=== PATIENT | female | born 1930 | race Caucasian/White ===

== ENCOUNTER → 2017-06-13 | Outpatient (CLI) | payer OTHER, MEDICARE | LOC: RAD 10:30 → EDBD 10:30 | DX: Z12.31 Encounter for screening mammogram for malignant neoplasm of breast (principal) ==

== ENCOUNTER → 2018-09-16 | Outpatient (CLI) | payer OTHER, MEDICARE | LOC: ULTRA 08:05 | DX: K76.0 Fatty (change of) liver, not elsewhere classified (principal); Z88.0 Allergy status to penicillin; Z88.8 Allergy status to other drugs, medicaments and biological substances ==

== ENCOUNTER 2019-02-22 10:17 | Emergency (ER) | payer OTHER, MEDICARE ==
[~2019-02-22] VITALS: Ht 165.1 cm; Wt 70.8 kg
[2019-02-22 10:21] VITALS: BP 143/77
[2019-02-22] MEDS ORDERED: LEVO-T100 MCG PO (11:15)
[2019-02-22] MEDS ORDERED: PREDNISONE 20 M20 MG PO (11:25)
== END 2019-02-22 11:45 | disposition home or self-care (01) ==
LOC: ER 10:17
DX: R21 Rash and other nonspecific skin eruption (principal); Z88.0 Allergy status to penicillin; Z88.6 Allergy status to analgesic agent

== ENCOUNTER 2019-11-18 10:13 | Inpatient (IN) | payer OTHER, MEDICARE ==
[~2019-11-18] VITALS: Ht 165.1 cm; Wt 75.5 kg
[~2019-11-18 10:13] MED LIST: LEVO-T100 MCG PO; PREDNISONE 20 M20 MG PO
[2019-11-18 10:14] VITALS: BP 101/44
[2019-11-18 11:59] LABS: ABSOLUTE NEUTROPHILS 4.3 thou/uL (1.4-8.2); BASOPHILS 0.4 % (0.0-2.0); HEMATOCRIT 42.7 % (37.0-47.0); HEMOGLOBIN 14.1 gm/dL (12.0-15.0); LYMPHOCYTES 18.4 % (24.0-44.0); MCH 29.9 pg (26.0-34.0); MCHC 33.2 g/dL (28.0-37.0); MCV 90.3 fL (80.0-100.0); MONOCYTES 6.6 % (1.0-8.0); PLATELET COUNT 245 thou/uL (150-400); POLYS 74.6 % (36.0-66.0); RBC 4.72 mil/uL (4.20-5.00); RDW 13.6 % (10.5-14.5); WBC 5.8 thou/uL (4.0-11.0)
[2019-11-18 12:08] LABS: ANION GAP 9 mmol/L (7-16); BUN 12 mg/dL (7-18); CALCIUM 8.2 mg/dL (8.5-10.1); CHLORIDE 97 mmol/L (98-107); CO2 24 mmol/L (21-32); CREATININE 1.4 mg/dL (0.6-1.0); GLUCOSE 132 mg/dL (74-106); POTASSIUM 4.1 mmol/L (3.5-5.1); SODIUM 130 mmol/L (136-145)
[2019-11-18 12:18] LABS: ALBUMIN 2.5 g/dL (3.4-5.0); DIRECT BILIRUBIN < 0.1 mg/dL (<0.1-0.2); SGOT 43 U/L (15-37); SGPT 31 U/L (30-65); TOTAL BILIRUBIN 0.3 mg/dL (0.2-1.0); TOTAL PROTEIN 7.1 g/dL (6.4-8.2); TROPONIN-I <0.06 ng/mL (<0.06)
[2019-11-18 12:26] LABS: URINE BILIRUBIN NEGATIVE (Negative); URINE BLOOD NEGATIVE (Negative); URINE CLARITY CLEAR; URINE COLOR YELLOW; URINE GLUCOSE-RANDOM* NEGATIVE (Negative); URINE KETONES TRACE (Negative); URINE LEUKOCYTES-REFLEX TRACE (Negative); URINE NITRITE-REFLEX NEGATIVE (Negative); URINE PROTEIN (DIPSTICK) TRACE (Negative); URINE UROBILINOGEN 0.2 E.U./dl (0.2-1.0)
[2019-11-18 15:07] VITALS: BP 138/60
--- NOTE | 2019-11-18 15:19 | EKG ---
[facility] [address] [place] [address] ELECTROCARDIOGRAM REPORT Name: JOSELYN RASMUSSEN Room #: 170-8 ADM [facility] M.R.#: [id number] Admission: 11/18/19 Attend Phys: Wiley Mckeon MD Discharge: Date of : 34 Report #: [id number] THIS REPORT FOR: cc: Wiley Mckeon MD, Neal A. 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
[2019-11-18 15:21] VITALS: BP 139/60
[2019-11-18 15:45] VITALS: BP 135/66
[2019-11-18 19:40] VITALS: BP 134/59
--- NOTE | 2019-11-18 19:53 | NUR ---
PT ARRIVED TO FLOOR PER WC FROM ED AT 1545 IN STABLE CONDITION.ADMISSION HX, ASSESSMENT AND CARE PLAN COMPLETED.DR ARIZA NOTIFIED ABOUT PT ARRIVAL TO FLOOR AND ORDER NOTED.PT UP TO BSC WITH ASSIST.CLEAR LIQ TRAY GIVEN AT DINNER. REPORT OFF TO NOC RN.
--- NOTE | 2019-11-19 06:20 | NUR ---
Assumed pt care at 1900. Pt A/OX4,VSS though with low grade temp/SOA contacted and orders obtained for APAP/CXR/Blood cx. Xray results called to MD and N.O for Levaquin given and implemented. Pt's IV infiltrated twice and a 24 gauge started on LFA,IVF infusing w/o problems at this time. Pt c/o not being able to sleep well despite sleep aid being given stating she wants to go home today regardless of dtr/MD decision stating she shouldn't have been admitted she's fine 1:1 reassuarance given to pt with little success. Reports feeling hungry this am,on a clear liquid diet will relay to day nurse for advancing diet. No c/o N/V throughout the night. Up with AX1 to BSC. Fall precautions in place,calls approp for help,will continue to monitor pt.
[2019-11-19 06:21] VITALS: BP 125/47
[2019-11-19 09:37] LABS: HEMATOCRIT 41.5 % (37.0-47.0); HEMOGLOBIN 13.5 gm/dL (12.0-15.0); MCH 29.3 pg (26.0-34.0); MCHC 32.5 g/dL (28.0-37.0); MCV 90.4 fL (80.0-100.0); RBC 4.59 mil/uL (4.20-5.00); RDW 13.4 % (10.5-14.5)
[2019-11-19 09:43] LABS: POTASSIUM 4.1 mmol/L (3.5-5.1)
[2019-11-19 10:25] VITALS: BP 154/75
--- NOTE | 2019-11-19 11:07 | NUR ---
Assumed pt care at 7am.Assessment completed.vss.Pt was very anxious and hungry wanted breakfast.Dr Mckeon rounded on pt and order noted.Covid 19 test done.Lab called and was told that the result will be out by 1500.Due to covid r/o protocol,pt transfered to 3west per bed at am accompanied by this rn.Dr Mckeon and pt family notified.
--- NOTE | 2019-11-19 11:19 | NUR ---
ASSUMED PATIENT CARE THIS AM AT APPROXIMATELY 1000. PATIENT ARRIVED TO UNIT FROM 4W FOR R/O COVID. PATIENT EDUCATED ON ISOLATION PRECAUTIONS AND INDICATION FOR MOVING ROOMS. ALL SAFETY PRECAUTIONS IN PLACE. CALL LIGHT WITHIN REACH EDUCATED PATIENT ON USE OF CALL LIGHT FOR ASSISTANCE OUT OF BED. NO ACUTE DISTRESS NOTED. ASSESSMENT AND MEDS CHARTED.
[2019-11-19 15:10] VITALS: BP 147/76
[2019-11-19 20:01] VITALS: BP 127/68
[2019-11-20 02:34] LABS: BE(vivo) -0.2 mmol/L (-2 to +3); HCO3 20.7 mmol/L (22.0-26.0); PCO2 25.1 mmHg (35.0-45.0); PO2 98.2 mmHg (80.0-100.0); pH 7.534 (7.360-7.450); sO2 98.2 % (92.0-98.0)
[2019-11-20 02:56] VITALS: BP 155/80
--- NOTE | 2019-11-20 04:45 | NUR ---
0230 PT CALLED OUT TO USE BSC. PT WAS LOOKING DISTRESSED AND HAVING HARD TIME BREATHING. PLACED 02 SENSOR AND PT WAS IN LOW 80'S. ORDERED ABG'S. GRABBED NC AND PLACED PT ON 4L. 02 UP TO 86-88%. PLACED PT ON REBREATHER TO INCREASE 02 SATURATION. PT 02 ON REBREATHER WAS 98%. ALSO PLACED PT ON TELE TO SEE IF ANY UNDERLYING HEART RHYTHMS. TELE SHOWED ST. CALLED AND GAVE UPDATE ON PT ABG'S, 02 NEEDS AND ANXIETY. RECEIVED ORDERS AND TO VERIFY LABS AND CHEST XRAY FOR AM. PT GIVEN 0.5MG XANAX TO HELP WITH ANXIETY. PT TOLERATED XANAX WELL AND SLEEPING. 02 TITRATED TO 2L NC AND AT 98% AT 0430. 2ND COVID SWAB CAME BACK POSITIVE. CALLED HS WITH RESULT AND PLACED CONSULT FOR ID.
[2019-11-20 05:29] LABS: CALCIUM 8.1 mg/dL (8.5-10.1); CREATININE 1.1 mg/dL (0.6-1.0); POTASSIUM 4.3 mmol/L (3.5-5.1)
[2019-11-20 05:36] LABS: HEMATOCRIT 40.1 % (37.0-47.0); HEMOGLOBIN 13.4 gm/dL (12.0-15.0); MCH 29.9 pg (26.0-34.0); MCHC 33.4 g/dL (28.0-37.0); MCV 89.6 fL (80.0-100.0); RBC 4.48 mil/uL (4.20-5.00); RDW 13.6 % (10.5-14.5); WBC 5.7 thou/uL (4.0-11.0)
[2019-11-20 07:50] VITALS: BP 151/74
[2019-11-20 08:20] VITALS: BP 141/77; BP 151/74
--- NOTE | 2019-11-20 13:31 | NUR ---
PT CARE ASSUME AT 0700, PT ALERT AND ORIENTED X4, FORGETFUL ATIMES. PT IS ON 2L OF OXYGEN. SEEMS TO HAVE OW APPETITE, ENCOURAGE TO EAT BUT REFUSES TO EAT. PT IS UP WITH 1 ASSIST TO THE BEDSIDE COMMODE. FALL PRECAUTION IN PLACE. WILL CONTINUE TO MONITOR.
--- NOTE | 2019-11-20 13:34 | NUR ---
INITIAL ASSESSMENT: Received consult. SW reviewed chart and spoke with nursing and attending physician. Pt was admitted from home due to weakness/dehydration. Pt transferred to 3W from 4W yesterday morning and placed in Enhanced Isolation. Pt did have positive COVID test. Pt is on 2L of O2 and on IV abx/IV steroids. Pt did require 15L with NRB mask overnight. Pt is a DNR. PT/OT ordered to evaluate pt for discharge needs. ID consulted. No weekend discharge planned. CINDY placed call to pt's room. No answer. CINDY spoke with pt's dtr, Mayela, via phone. Introduced role of SW. Pt is normally alert/orientated x 4. Pt lives at home with Mayela and her . 5 steps to enter the home. 10 steps up to the second level where pt's bedroom is located. Pt does not use any DME and is able to navigate the stairs. No use of O2 prior to admission. Pt's PCP is Dr. Mckeon. No hx of HH services or post-acute placement. Pt's dtr is concerned about pt returning home and need to isolate in the home. CINDY discussed options for discharge: SNF placement v. Home with HH. Pt's dtr states HH would be preferred. SW answered all questions from pt's dtr. SW is following to assist as needed with discharge planning.
[2019-11-20 16:36] VITALS: BP 130/65
[2019-11-20 19:24] VITALS: BP 128/65
[2019-11-20] MEDS ORDERED: LUMIFY2.5 ML OPHTHALMIC (20:20)
[2019-11-21 01:41] VITALS: BP 131/79; BP 134/77
--- NOTE | 2019-11-21 02:17 | NUR ---
1 st dose of Remdesivir given and convelscent plasma started at 0155. spoke to pts dtr for consent to administer te plasma. also talked with pt/ educated on the need and documents information provided. she has poor vision, helped her read through the education.
[2019-11-21 04:49] VITALS: BP 131/79
[2019-11-21 05:17] LABS: HEMATOCRIT 38.8 % (37.0-47.0); HEMOGLOBIN 12.6 gm/dL (12.0-15.0); MCH 29.4 pg (26.0-34.0); MCHC 32.4 g/dL (28.0-37.0); MCV 90.5 fL (80.0-100.0); PLATELET COUNT 207 thou/uL (150-400); RBC 4.29 mil/uL (4.20-5.00); RDW 13.6 % (10.5-14.5); WBC 2.5 thou/uL (4.0-11.0)
[2019-11-21 05:28] LABS: ALBUMIN 2.1 g/dL (3.4-5.0); CREATININE 0.9 mg/dL (0.6-1.0); POTASSIUM 3.8 mmol/L (3.5-5.1); TOTAL BILIRUBIN 0.2 mg/dL (0.2-1.0); TOTAL PROTEIN 6.5 g/dL (6.4-8.2)
[2019-11-21 06:51] LABS: ABSOLUTE NEUTROPHILS 1.6 thou/uL (1.4-8.2)
[2019-11-21 06:55] LABS: FIBRINOGEN 433.1 mg/dL (210-360); PROTIME 10.2 Seconds (9.3-11.4)
[2019-11-21 07:33] VITALS: BP 146/78
--- NOTE | 2019-11-21 11:47 | NUR ---
ASSUMED PATIENT CARE THIS AM AT APPROXIMATELY 0700. PATIENT AWAKE ALERT ORIENTED X3. INTERMITTENT CONFUSION ON DATE/TIME. PATIENT O2 SAT AT 90% ON 4LNC, INCREASED O2 TO 5LNC AND O2 SAT INCREASED TO 92%. WILL CTM. PATIENT DENIES ANY SOB AT THIS TIME. NO COMPLAINTS OF PAIN. STATES THAT SHE WOULD LIKE TO AMBULATE IN ROOM BY HERSELF BUT EDUCATED ON FALL PRECAUTIONS WITH MX LINES. ENCOURAGED OOB TO CHAIR WITH ASSISTANCE ONLY.
[2019-11-21 15:20] VITALS: BP 139/70
[2019-11-21 19:17] VITALS: BP 146/69
[2019-11-22 03:25] VITALS: BP 145/81
[2019-11-22 03:45] VITALS: BP 145/81
--- NOTE | 2019-11-22 05:44 | NUR ---
CONTINUES ON THE REMDESIVIR, SHE STATD THAT SHE IS FEELING BETTER AND LESS WEAK. CONTINUES ON IV FLUIDS. CALLS APPROP FOR ASSIST OUT FOR BSC. REPEATEDLY ASKING WHEN SHE WILL GET TO GO HOME. FORGETFUL ABOUT ANSWER GIVEN.
[2019-11-22 08:26] VITALS: BP 142/77
--- NOTE | 2019-11-22 11:50 | NUR ---
ASSUMED PATIENT CARE THIS AM AT APPROXIMATELY 0700. PATIENT AWAKE ALERT ORIENTED X3. DISORIENTED TO TIME. PATIENT FORGETFUL AND REPEATS SAME QUESTIONS. REORIENTED PATIEN PRN THROUGHOUT SHIFT. ASSISTED PATIENT TO BSC AND BEDSIDE CHAIR WITH 1 PERSON ASSIST, TOLERATED WELL DENIES ANY DIZZINESS/ SOB WITH TRANSFERS. ENCOUARAGED PATIEN TO STAY IN CHAIR FOR MAJORITY OF THE DAY. PATIENT O2 SAT AT 90% ON 4LNC. TOLERATING MEDICATIONS WELL. BED ALARM AND CHAIR ALARM IN PLACE. EDUCATED PATIENT ON FALL PRECAUTIONS.
[2019-11-22 15:20] VITALS: BP 153/81
[2019-11-22 19:35] VITALS: BP 159/84
[2019-11-23 02:43] VITALS: BP 140/91
--- NOTE | 2019-11-23 04:00 | NUR ---
Pt. on 5L/NC at beginning of shift with O2 sat in the low 90's.Assisted to use commode the desat in the mid 80's. O2 titrated up to 7L/HF to keep O2 sat >90%. She does get short of breath with exertion. RT notified and gave her scheduled breathing tx. RT titrated O2 back down to 6L after tx. She requested for anxiety med and xanax given. She slept fair during the night. Cont. on enhanced precaution ,afebrile. Bed alarm on for safety.
[2019-11-23 05:10] LABS: CALCIUM 7.4 mg/dL (8.5-10.1); CREATININE 0.9 mg/dL (0.6-1.0); POTASSIUM 3.3 mmol/L (3.5-5.1)
[2019-11-23 05:17] LABS: ALBUMIN 1.9 g/dL (3.4-5.0); DIRECT BILIRUBIN < 0.1 mg/dL (<0.1-0.2); SGOT 47 U/L (15-37); SGPT 41 U/L (30-65); TOTAL BILIRUBIN 0.2 mg/dL (0.2-1.0); TOTAL PROTEIN 6.1 g/dL (6.4-8.2)
[2019-11-23 07:15] LABS: HEMATOCRIT 40.8 % (37.0-47.0); HEMOGLOBIN 13.4 gm/dL (12.0-15.0); MCH 29.5 pg (26.0-34.0); MCHC 32.9 g/dL (28.0-37.0); MCV 89.6 fL (80.0-100.0); RBC 4.55 mil/uL (4.20-5.00); RDW 13.9 % (10.5-14.5); WBC 10.1 thou/uL (4.0-11.0)
[2019-11-23 07:26] VITALS: BP 153/94
[2019-11-23 10:09] LABS: BE(vivo) 1.8 mmol/L (-2 to +3); HCO3 24.5 mmol/L (22.0-26.0); pH 7.488 (7.360-7.450); sO2 90.9 % (92.0-98.0)
[2019-11-23 10:10] LABS: PO2 54.4 mmHg (80.0-100.0)
--- NOTE | 2019-11-23 10:33 | NUR ---
ASSUMED PATIENT CARE THIS AM. PATIENT IS AWAKE AND ALERT, CONFUSED AND FORGETFUL. PATIENT VERY ANXIOUS THIS AM, REPEATEDLY ASKING TO GET OUT OF BED TO BSC, O2 SAT DROPPED TO 80% ON 7LNC THIS AM WHEN GETTING UP TO BSC, IT TOOK ABOUT 5 MINUTES FOR PATIENT O2 TO RECOVER TO 88%. PATIENT O2 INCREASED TO HIGHFLOR NC AT 9L. O2 SAT 91%. ENCOURAGED PATIENT TO USE BEDSIDE COMMODE AND O2 SAT DROPPED WHEN USING BEDSIDE COMMODE WELL TO 80%, PLACED PATIENT ON NRB AT 15L AND ORDERS OBTAINED FROM DR. ARIZA FOR TINSLEY PLACEMENT, CHEST XRAY, LASIX IV, ABG. O2 SAT INCREASED TO 95% ON 15LNRB. RESTING IN BED. CALLED PATIENT DAUGHTER TO MAKE AWARE OF CHANGE IN PATIENT STATUS AND WHEN PATIENT WAS SETTLED PATIENT WAS ABLE TO SPEAK WITH DAUGHTER VIA FACETIME VIDEO CHAT. ALL SAFETY MEASURES IN PLACE. CALLED DR ARIZA TO MAKE AWARE OF CHEST XRAY AND ABG RESULTS. AWAITING NEW ORDERS
--- NOTE | 2019-11-23 15:55 | NUR ---
CINDY reviewed chart and spoke with nursing. Pt remains in Enhanced Isolation due to COVID-19. Pt had convalescent plasma and is completing course of Remdesivir. Pt is afebrile and now requiring 15L of O2. Pt is on IV lasix and IV steroids. CINDY spoke with pt's dtr, Mayela, via phone. Mayela asked about pt being put on hospice in the hospital, should her condition continue to decline. Pt's dtr to coordinate with pt's nurse another Face Time visit, as visitors are not allowed on 3W. CINDY updated pt's nurse. CINDY is following to assist as needed with discharge planning.
[2019-11-23 16:00] VITALS: BP 137/79
[2019-11-23 20:39] VITALS: BP 142/84
[2019-11-24 03:44] VITALS: BP 159/98
--- NOTE | 2019-11-24 05:08 | NUR ---
PT WAS VERY ANXIOUS AT BEGINNING OF SHIFT, CALLING OUT FREQUENTLY AND MAKING CONFUSED STATEMENTS, SAYING SHE WANTS TO GO HOME. PT'S DTR MEAGAN CALLED UNIT; UPDATE PROVIDED. PT BECOMES SOA WITH ANY EXERTION AND O2 SATS DROP INTO THE 80S. RT PLACED PT ON OPTIFLOW 50L, 75% FIO2. PT WAS GIVEN BENADRYL AND TYLENOL AT BEDTIME TO HELP WITH SLEEP AND DISCOMFORT. PT HAS SINCE BEEN SLEEPING WELL DURING THE NIGHT. RESPIRATIONS EVEN AND UNLABORED. PT HAS MAINTAINED SPO2 > 92% WHILE ON OPTIFLOW. FALL PRECAUTIONS IN PLACE. NOT PROGRESSING WELL TOWARD POC GOALS.
[2019-11-24 05:23] LABS: FIBRINOGEN 388.3 mg/dL (210-360); INR 1.1; PROTIME 11.5 Seconds (9.3-11.4)
[2019-11-24 05:34] LABS: DIRECT BILIRUBIN < 0.1 mg/dL (<0.1-0.2); SGOT 54 U/L (15-37); SGPT 57 U/L (30-65); TOTAL BILIRUBIN 0.3 mg/dL (0.2-1.0); TOTAL PROTEIN 5.9 g/dL (6.4-8.2)
[2019-11-24 05:44] LABS: CALCIUM 7.5 mg/dL (8.5-10.1); POTASSIUM 3.9 mmol/L (3.5-5.1); TOTAL BILIRUBIN 0.3 mg/dL (0.2-1.0); TOTAL PROTEIN 5.9 g/dL (6.4-8.2)
[2019-11-24 05:55] LABS: HEMATOCRIT 40.2 % (37.0-47.0); HEMOGLOBIN 13.3 gm/dL (12.0-15.0); MCH 29.5 pg (26.0-34.0); MCHC 33.2 g/dL (28.0-37.0); MCV 88.9 fL (80.0-100.0); PLATELET COUNT 309 thou/uL (150-400); RBC 4.52 mil/uL (4.20-5.00); RDW 13.5 % (10.5-14.5); WBC 7.5 thou/uL (4.0-11.0)
[2019-11-24 08:33] LABS: ABSOLUTE NEUTROPHILS 6.2 thou/uL (1.4-8.2); ANISOCYTOSIS SLIGHT; ATYPICAL LYMPHS 1 %; LARGE PLATELETS FEW
[2019-11-24 09:35] VITALS: BP 163/100
--- NOTE | 2019-11-24 15:53 | NUR ---
CINDY reviewed chart and spoke with nursing and attending physician. Pt remains in Enhanced Isolation due to COVID-19. Pt is febrile and requiring optiflow O2. Pt is on IV abx and IV steroids. Pt to complete course of Remdesivir today. Per attending, pt's family would like to continue course of treatment for the next couple of days to see if pt's condition improves. If not, pt would be agreeable with comfort care/hospice. Pt's family has been able to see/communicate with pt via Face Time. CINDY is following to assist as needed with discharge planning.
[2019-11-24 16:56] VITALS: BP 136/76
--- NOTE | 2019-11-24 18:00 | NUR ---
PT VERY ANXIOUS...RESPONDS WELL TO ATIVAN PRN,...SHE DID FACETIME HER DAUGHTER TODAY WHICH DID CALM HER DOWN...
[2019-11-24 19:45] VITALS: BP 153/88
[2019-11-25 06:42] LABS: CALCIUM 7.6 mg/dL (8.5-10.1); CREATININE 1.1 mg/dL (0.6-1.0); POTASSIUM 4.3 mmol/L (3.5-5.1)
--- NOTE | 2019-11-25 07:14 | NUR ---
ASSUMED PT CARE AROUND 193. VSS. REMAINS TO BE ON HFC.MAINTAINED BY RT MOST OF THE TIMES AN ON CONT PULSE OX MONITORING. NO S/S ACUTE DISTRESS NOTED OR REPORTED AT THIS TIME. CARE TRANSFERRED TO ANOTHER RN AT THIS TIME
[2019-11-25 08:12] VITALS: BP 171/81
--- NOTE | 2019-11-25 15:49 | NUR ---
SW reviewed chart and spoke with nursing and attending physician. Pt remains in Enhanced Isolation due to COVID-19. Pt is afebrile and and requiring Optiflow. Pt is on IV Lasix, IV steroids and IV abx. Pt has completed course of Remdesivir. Physical therapy was able to work with therapy yesterday. CINDY is following to assist as needed with discharge planning.
[2019-11-25 16:30] VITALS: BP 135/80
--- NOTE | 2019-11-25 18:00 | NUR ---
PT KEEPS REQUESTING TO GO HOME...VEWRY CONCERNED ABOUT SEEING HER FAMILY...SHE FACETIMED FAMILY X 3 TODAY...
[2019-11-25 20:03] VITALS: BP 157/88
[2019-11-26 05:26] VITALS: BP 169/95
--- NOTE | 2019-11-26 07:26 | NUR ---
progress pt alert denies pain except for throat pain ice chips provided and tylenol given with effect pt slept most of shift up to bsc for small stool. monroy intact draining clear yellow urine remians on optiflo at 53 liters and a fio2 of 79 cont, sat monitor in place reading remaining within normal limits 91 to 95%. accuchecks and ssi continue. iv abt's administered as ordered continue poc.
[2019-11-26 08:12] VITALS: BP 156/89
[2019-11-26 15:04] LABS: HEMOGLOBIN 14.6 gm/dL (12.0-15.0); MCH 29.6 pg (26.0-34.0); MCHC 33.1 g/dL (28.0-37.0); MCV 89.5 fL (80.0-100.0); RBC 4.91 mil/uL (4.20-5.00); RDW 13.9 % (10.5-14.5)
[2019-11-26 15:26] LABS: CALCIUM 7.8 mg/dL (8.5-10.1); CREATININE 1.3 mg/dL (0.6-1.0); POTASSIUM 5.1 mmol/L (3.5-5.1)
[2019-11-26 15:41] VITALS: BP 118/64
--- NOTE | 2019-11-26 18:12 | NUR ---
ASSUMED PATIENT CARE THIS AM AT APPROXIMATELY 0700. PATIENT IS AWAKE ALERT ORIENTED X3. PATIENT O2 SAT 94-96% ON OPTIFLOW 53L AT 79% FIO2. RT TITRATING O2 NEEDS THIS SHIFT, ABLE TO TITRATE PATIENT DOWN TO 45L AT 45% FIO2 THIS SHIFT. O2 SAT 91-93% AT REST. PATIENT WAS ABLE TO GO TO BEDSIDE CHAIR X 2HRS THIS SHIFT WITH OT. O2 SAT DID DROP TO 86% WITH OOB ACTIVITY. TOLERATING PO MEDS, POOR APPETITE THIS SHIFT ONLY DRINKING ENSURES FOR MEALS, REFUSING SOLID FOOD.
[2019-11-26 19:25] VITALS: BP 148/79
--- NOTE | 2019-11-27 00:53 | NUR ---
PATIENT SLEEPING IN BED AWAKEN FOR ASSESSMENT. IS ALERT X 2-3. SKIN WARM AND DRY. RESP EVEN ANDF UNLABORED. 02 IS N45 L WITH 45 FI02. O2 SAT 96%. HAS A RIGHT HAND SL FLUSHES WELL WITH ALL ANTIBIOTICS. HAS A POOR VISON. HAS A POOR APPETITE AT TIMES. TINSLEY INTACT. UP TO BSC WITH NO BM NOTED. NO SKIN ISSUES NOTED. TAKES MEDS WHOLE WITH WATER. IS A 1 PERSON MOD ASSIST. FALL RISK. HAS EDEMAA NOTED TO ANKLES ABOUT 1+. LUNGS HAVE CRACKLES NOTED IN RIGHT SIDE.,MHAS REDDNESS ON HIS SHINS BILATERAL. GIVEN ATIVAN FOR ANXIETY. SLEEPING WELL NOW. CONT PLAN OF CARE.
[2019-11-27 05:14] VITALS: BP 149/81
[2019-11-27 10:08] LABS: HEMATOCRIT 44.5 % (37.0-47.0); HEMOGLOBIN 14.6 gm/dL (12.0-15.0); MCH 29.4 pg (26.0-34.0); MCHC 32.9 g/dL (28.0-37.0); MCV 89.4 fL (80.0-100.0); RBC 4.98 mil/uL (4.20-5.00); RDW 13.9 % (10.5-14.5); WBC 13.6 thou/uL (4.0-11.0)
[2019-11-27 10:18] LABS: CALCIUM 8.4 mg/dL (8.5-10.1); CREATININE 0.8 mg/dL (0.6-1.0); POTASSIUM 5.1 mmol/L (3.5-5.1)
[2019-11-27 11:51] LABS: TOTAL BILIRUBIN 0.5 mg/dL (0.2-1.0); TOTAL PROTEIN 5.8 g/dL (6.4-8.2)
[2019-11-27 16:33] VITALS: BP 141/72
--- NOTE | 2019-11-27 16:43 | NUR ---
CINDY reviewed chart and spoke with nursing and attending physician. Pt remains in Enhanced Isolation due to COVID-19. Pt is afebrile and on optiflow. Pt is on IV abx and IV steroids. No weekend discharge planned. CINDY spoke with pt's dtr and son-in-law via phone. Update provided and questions answered. CINDY discussed post-acute placement: LTAC/inpt acute rehab/SNF. Pt's family verbalized understanding and know that pt most likely cannot return directly home when discharged. CINDY is following to assist as needed with discharge planning.
--- NOTE | 2019-11-27 18:20 | NUR ---
CONT ON HIGH GURWINDER OXYGEN AT THIS TIME. RESPIRATIONS ARE NON LABORED. PLEASANT WITH CARE. DOES NOT SEEM TO BE IN PAIN. HAD MULTIPLE SMALL STOOLS THROUGH THE DAY. SPOKE WITH FAMILY VIA VIDEO. WILL CONT WITH PLAN OF CARE.
[2019-11-27 19:33] VITALS: BP 144/78
--- NOTE | 2019-11-27 22:26 | NUR ---
PT HAS SCOWL ON FACE EYES CLOSED TALKING ON PHONE WITH STATING SHE WANTS TO GO HOME TOMORROW, PT ALSO REQUESTING COMMUNION. NURSE TALKED WITH ON PHONE, AND HE STATED PT IS NORMALLY VERY POSITIVE AND HAPPY. PT CONTINUES WITH OPTI GURWINDER AND CONTINUOUS PULSE OX. , LUNGS COARSE IN THE BASES. TINSLEY TO DD. IVF CONTINUE. PT COMPLIANT WITH HS MEDS. BED ALARM ON. PT REPORTED TO HAVE POOR PO INTAKE TODAY, DECLINED HS SNACK.
[2019-11-28 03:47] VITALS: BP 152/86
[2019-11-28 07:40] VITALS: BP 169/93
[2019-11-28 15:32] VITALS: BP 125/67
--- NOTE | 2019-11-28 18:33 | NUR ---
PATIENT HAS BEEN UP FROM BED FEW TIMES TODAY TO USE BEDSIDE COMMODE. HAS HAD ONE BOWEL MOVEMENT SO FAR. TINSLEY DRAINING CLEAR YELLOW URINE. WILL CONT WITH PLAN OF CARE.
[2019-11-28 19:42] VITALS: BP 155/86
[2019-11-28 23:53] VITALS: BP 155/95
--- NOTE | 2019-11-29 01:46 | NUR ---
PT IS CONFUSED AND FORGETFUL. VSS AFEBRILE. SATS 94-95% WITH CURRENT OPTIFLOW SETTINGS. PT C/O "I CANT BREATHE." RT TX GIVEN EARLIER. ATIVAN GIVEN FOR ANXIETY. PT BREATHING BETTER NOW. RESTING QUIETLY. SATS 95%. IV IBX INFUSING. BED DOWN. CALL LIGHT IN REACH SIDE RAILS UP X2. BED ALARM ON. JOSE C CONTINUE TO MONITOR PT FOR CHANGES.
[2019-11-29 04:15] VITALS: BP 171/96
[2019-11-29 08:58] VITALS: BP 138/93
--- NOTE | 2019-11-29 12:05 | NUR ---
ASSUMED PATIENT CARE THIS AM AT APPROXIMATELY 0700. PATIENT IS AWAKE ALERT AND ORIENTED TO SELF PLACE AND SITUATION. WITH SOME INTERMITTENT FORGETFULNESS AND CONFUSION. PATIENT VERY ANXIOUS THIS AM AND ATTEMPTING TO GET OUT OF BED FREQUENTLY WITHOUT CALLING FOR ASSISTANCE. ASSISTED PATIENT TO BEDSIDE CHAIR FOR BREAKFAST AND LUNCH AND IMMEDIATELY CALLED TO BE ASSISTED BACK TO BED. PATIENT GIVEN ATIVAN X1 THIS AM FOR ANXIETY. WILL CTM FOR EFFECTIVENESS. ALL SAFETY MEASURES IN PLACE.O2 SAT 90-92% ON OPTIFLOW NC.
[2019-11-29 17:45] VITALS: BP 133/66
[2019-11-29 19:19] VITALS: BP 151/81
--- NOTE | 2019-11-30 02:25 | NUR ---
PT IS ALERT AND ORIENTED X1. CONFUSED. THOUGHT SHE WAS AT [facility] IN HER NEW ROOM. PT IS DISORIENTED AT TIMES TO DAY AND NIGHT. BED ALARM ON SIDE RAILS UP X3. BED DOWN IN LOW LOCKED POSITION. VSS AFEBRILE. DESATS WHILE GETTING UP TO BSC BRIEFLY THEN BACK UP 93%. ABX GIVEN ORDERED. WILL CONTINUE TO MONITOR PT FOR CHANGES. PT VOIDS CLEAR YELLOW URINE IN BSC, PT HAD 1 LOOSE STOOL.
[2019-11-30 03:23] VITALS: BP 184/83
[2019-11-30 06:14] LABS: CALCIUM 8.2 mg/dL (8.5-10.1); CREATININE 0.9 mg/dL (0.6-1.0); POTASSIUM 4.9 mmol/L (3.5-5.1)
[2019-11-30 06:15] LABS: HEMATOCRIT 44.7 % (37.0-47.0); HEMOGLOBIN 14.7 gm/dL (12.0-15.0); MCH 29.7 pg (26.0-34.0); MCHC 32.9 g/dL (28.0-37.0); MCV 90.2 fL (80.0-100.0); RBC 4.95 mil/uL (4.20-5.00); RDW 13.9 % (10.5-14.5); WBC 12.8 thou/uL (4.0-11.0)
--- NOTE | 2019-11-30 06:25 | NUR ---
PT RESTING QUIETLY PRESENTLY. IV ABX INFUSING. UNLABORED PRESENTLY ON OPTIFLOW. NO CHANGES IN ASSESSMENT.
[2019-11-30 06:47] VITALS: BP 157/63
--- NOTE | 2019-11-30 07:12 | NUR ---
CORRECTION FROM PREVIOUS NURSING NOTE ENTRY. PTS BP HAS BEEN MODERATELY ELEVATED FROM 150s to as high as 180s. Dr Mckeon was notified and he stated he would add or adjust bp medications.
[2019-11-30 07:40] VITALS: BP 156/83
[2019-11-30 07:54] VITALS: BP 156/83
--- NOTE | 2019-11-30 08:00 | NUR ---
PT IS ABLE TO STATE HER NAME, WHAT STATE SHE IS IN, HER BIRTHDAY AND THE MONTH. UNABLE TO STATE WHAT KIND OF BUILDING SHE IS IN, BUT KNOWS THAT SHE WANTS TO GET OUT AND SHE WANTS TO GO BACK TO [place] WERE IT IS WARM. CALLED THE PT WHEN I WAS IN THE ROOM. PT KEPT TELLING HIM THAT SHE WANTS TO GO WITH HIM AND GO BACK TO [place]. I TALKED WITH ON THE PHONE. HE STATES THAT LIFE WAS DIFFERENT WHEN THEY LIVED IN [place] AND PT ISN'T USED TO BEING ISOLATED. STATED MY APOLOGIES ABOUT ISOLATION GUIDELINES AND UPDATED HIM ON PTS CARE
--- NOTE | 2019-11-30 11:45 | NUR ---
IPAD TAKEN IN ROOM AND PT FACETIMED WITH HER DAUGHTER AND FAMILY.
--- NOTE | 2019-11-30 16:15 | NUR ---
CINDY reviewed chart and spoke with nursing and attending physician. Pt remains in Enhanced Isolation due to COVID-19. Pt is afebrile and on optiflow (40L 33% FiO2). Pt is s/p convalescent plasma and course of Remdesivir. Pt is on IV abx and IV steroids. Repeat COVID test to be ordered. CINDY spoke with pt's dtr, Mayela, via phone to discuss LTAC placement. Lengthy discussion regarding the three LTAC facilities. Pt's dtr requests referral to be sent to all three for review. Pt would prefer a private room. SW faxed referrals with Rev Codes to the three LTACS for review. Notified liaisons. CINDY is following to assist as needed with discharge planning.
[2019-11-30 16:48] VITALS: BP 152/78
--- NOTE | 2019-11-30 18:37 | NUR ---
PT PROGRESSED WELL THROUGHOUT THE SHIFT. PT STARTED ON VAPOTHERM AT 45L 33%. PT IS NOW ON HIGH FLOW NASAL CANNULA @ 10L. TOLERATING WELL. PT PARTICIPATED WITH PT/OT TODAY. DID NOT DESATURATE WITH ACTIVITY. GOOD PO INTAKE AND OUTPUT.
[2019-11-30 19:10] VITALS: BP 145/58
--- NOTE | 2019-12-01 02:45 | NUR ---
PT PROGRESSING TOWARDS D/C GOALS. TOLERATED GETIING TO BSC WELL ON 10 L NC. NEW IV PLACED L HAND FOR ABX. LUNGS DIMINSHED. LABORED SLIGHTLY WHILE GETTING TO BSC. NO C/O PAIN. PT ANXIOUS TO GO TO BACK TO [place]. WILL CONTINUE TO MONITOR PT FOR CHANGES.
[2019-12-01 03:31] VITALS: BP 174/91
--- NOTE | 2019-12-01 06:31 | NUR ---
PT RESTING QUIETLY NO S/S DISTRESS. NO C/O PAIN. SAT 96% ON 10 LNC
[2019-12-01 07:45] VITALS: BP 150/77
[2019-12-01 15:25] VITALS: BP 111/59
--- NOTE | 2019-12-01 16:06 | NUR ---
CINDY reviewed chart and spoke with nursing and attending physician. Pt remains in Enhanced Isolation due to COVID-19. Pt had repeat test yesterday and it was negative. Pt is afebrile and on 8L of O2. Pt is on IV abx and IV steroids. Attending states discharge to SNF is anticipated for tomorrow to [facility]. CINDY spoke with pt's dtr, Mayela, via phone to provide update and discuss discharge plan. CINDY discussed that the LTACs have pt's info. Pt's dtr states that Dr. Mckeon discussed [facility], and she is agreeable with referral to [facility]. CINDY faxed SNF referral to [facility] and notified liaison. [facility] requests a second negative COVID test if possible. [facility] can provide up to 7L of O2. CINDY updated attending physician. CINDY is following to assist as needed with discharge planning.
--- NOTE | 2019-12-01 18:24 | NUR ---
ASSUMED CARE APPROX 0700. PT ALERT AND ORIENTED X3. ASSESSMENT CHARTED AND VSS. REMAINS ON HFNC @8L AND DESATS WHEN AMBULATING. PT'S DTR AND SON UPDATED ON STATUS THIS SHIFT. PT DENIES PAIN. PT SLOWLY PROGRESSING TOWARDS PLAN OF CARE GOALS.
[2019-12-01 20:30] VITALS: BP 152/75
[2019-12-02 04:36] VITALS: BP 161/82
--- NOTE | 2019-12-02 07:34 | NUR ---
Pt. very anxious at beginning of shift. Daughter requested facetime with pt. O2 at 6L/HF with O2 sat in the mid 90's when awake then low 90's while asleep. She gets tachypneic after using the commode but recovers. Pt. encouraged to relax to catch her breathing as she gets anxious. She requested sleep med , benadryl given. She slept well during the night. Cont. on enhanced precaution. She has been afebrile. Had bm this am. Making some progress towards care plan goals.
[2019-12-02 07:50] VITALS: BP 128/67
[2019-12-02] MEDS ORDERED: NORVASC5 MG PO (08:10)
[2019-12-02] MEDS ORDERED: ZINC SULFATE 2220 MG PO (08:10)
[2019-12-02] MEDS ORDERED: ALBUTEROL2.5 MG/0.5 INH (08:11)
[2019-12-02] MEDS ORDERED: PEPCID AC10 MG PO (08:12)
[2019-12-02] MEDS ORDERED: VITAMINC500 PO (08:12)
--- NOTE | 2019-12-02 15:18 | NUR ---
ASSUMED CARE OF PT AT 0700. PT ALERT AND ORIENTED TIMES THREE. VSS, 97%6L. PT DENIES PAIN. CONTINUES TO GET SOA ON EXERTION. PT TOLERATES MEDS AND MEALS. PT UP TO BSC WITH ASSIST OF ONE. PLANS TO DISCHARGE TO PRISON TODAY. WILL CONTINUE TO MONITOR.
--- NOTE | 2019-12-02 15:52 | NUR ---
CINDY reviewed chart and spoke with nursing and attending physician. Pt is medically stable for discharge to [facility] today. Pt is afebrile and on 5L of O2. CINDY discussed case with [facility] liaison, who states they are able to accept pt. They do not need another negative test. SW notified that [facility] is unable to accept pt today due to having a positive test within the facility. [facility] may be able to accept pt tomorrow or pending results of additional tests. CINDY spoke with pt's dtr, Mayela, via phone to provide update. Pt's dtr is aware and in agreement with plan. SW updated LTAC liaisons of pt going to SNF. CINDY is following to assist as needed with discharge planning.
[2019-12-02 19:36] VITALS: BP 057/90; BP 157/90
[2019-12-03 05:21] LABS: ALBUMIN 2.2 g/dL (3.4-5.0); POTASSIUM 4.9 mmol/L (3.5-5.1); TOTAL BILIRUBIN 0.6 mg/dL (0.2-1.0)
[2019-12-03 05:35] VITALS: BP 157/72
[2019-12-03 06:15] LABS: ABSOLUTE NEUTROPHILS 10.8 thou/uL (1.4-8.2); BASOPHILS 0.3 % (0.0-2.0); EOSINOPHILS 0.4 % (0.0-3.0); HEMATOCRIT 44.4 % (37.0-47.0); HEMOGLOBIN 14.3 gm/dL (12.0-15.0); MCH 29.3 pg (26.0-34.0); MCHC 32.2 g/dL (28.0-37.0); MCV 90.8 fL (80.0-100.0); MONOCYTES 10.6 % (1.0-8.0); POLYS 70.7 % (36.0-66.0); RBC 4.89 mil/uL (4.20-5.00); RDW 14.2 % (10.5-14.5); WBC 15.3 thou/uL (4.0-11.0)
[2019-12-03 06:16] LABS: FIBRINOGEN 320.3 mg/dL (210-360); PROTIME 10.7 Seconds (9.3-11.4)
[2019-12-03 06:39] LABS: PLATELET COUNT 276 thou/uL (150-400)
--- NOTE | 2019-12-03 07:20 | NUR ---
Pt. requested sleep med last night , benadryl given and stated she slept well during the night. Maintaining O2 sat in the mid 90's at rest on 3L/NC then low 90's with activities. She does get short of breath with exertion and gets anxious as well. Up with SBA to commode to void. Making progress towards care plan goals.
[2019-12-03 07:44] VITALS: BP 139/73
--- NOTE | 2019-12-03 09:53 | NUR ---
TALKED WITH [facility] LAB ASSISTANT. PT IS TO LEAVE TODAY AROUND 11
--- NOTE | 2019-12-03 11:42 | NUR ---
PT OFF FLOOR VIA TRANSPORT TO REHAB FACILITY. 94% ON 3L. 118/72
[2019-12-03 11:43] VITALS: BP 118/72
--- NOTE | 2019-12-03 11:55 | NUR ---
TALKED WITH DAUGHTER MEAGAN. INFORMED HER THAT PT LEFT HOSPITAL. INFORMED HER OF NO VISITING AT THE REHAB FACILITY FOR 2 WEEKS AND THEN TO SET UP APPOINTMENT TO VISIT FOLLOWING THEN. PHONE NUMBER OF [facility] GONE OVER WITH DAUGHTER.
--- NOTE | 2019-12-03 13:44 | NUR ---
DISCHARGE NOTE: SW reviewed chart and spoke with nursing and attending physician. Pt is medically stable for discharge to [facility] today. SW discussed with [facility] liaison, who states they are able to accept pt today. SW faxed finalized discharge orders/summary to [facility] for review. Wheelchair van transportation scheduled for 1130 via facility's arrangements. Pt notified by nursing. CINDY spoke with pt's dtr, Mayela, via phone to provide update and discuss discharge plan. Pt's dtr is aware and agreeable with plan. Questions regarding visitor policy at [facility]. SW discussed with liaison. Pt would be able to have window visits for the first 14 days. Then pt would be able to have a 45 minute visit (face mask required) outdoors or in the private dining room. SW followed up with pt's dtr with this information. Pt's dtr verbalized understanding. Chart copy requested. Nursing provided with number to call report. No additional SW needs identified at this time, but is available to assist should needs arise.
== END 2019-12-03 11:48 | DRG 871 ==
LOC: ER 10:13 → EROBS 14:20 → 3W 14:20 → 4W 15:37 → 3W 11-19 11:12
PROVIDERS: Emergency Medicine; Specialist; ADMIT Family Medicine; ATTEND Family Medicine
PROC: XW033E5 Introduction of Remdesivir Anti-infective into Peripheral Vein, Percutaneous Approach, New Technology Group 5 (ICD-10-PCS; 2019-11-20)
PROC: XW13325 Transfusion of Convalescent Plasma (Nonautologous) into Peripheral Vein, Percutaneous Approach, New Technology Group 5 (ICD-10-PCS; principal; 2019-11-21)
PROC: XW033E5 Introduction of Remdesivir Anti-infective into Peripheral Vein, Percutaneous Approach, New Technology Group 5 (ICD-10-PCS; 2019-11-24)
PROC: XW033E5 Introduction of Remdesivir Anti-infective into Peripheral Vein, Percutaneous Approach, New Technology Group 5 (ICD-10-PCS; 2019-11-29)
DX: A41.9 Sepsis, unspecified organism (principal); U07.1 COVID-19; J12.89 Other viral pneumonia; J96.01 Acute respiratory failure with hypoxia; N17.9 Acute kidney failure, unspecified; I42.9 Cardiomyopathy, unspecified; G93.40 Encephalopathy, unspecified; E86.0 Dehydration; F41.9 Anxiety disorder, unspecified; E05.00 Thyrotoxicosis with diffuse goiter without thyrotoxic crisis or storm; Z66 Do not resuscitate; E03.9 Hypothyroidism, unspecified; Z88.6 Allergy status to analgesic agent; Z87.891 Personal history of nicotine dependence; Z88.0 Allergy status to penicillin; Z79.899 Other long term (current) drug therapy
CPT/HCPCS: 10040; 10080

== ENCOUNTER → 2020-02-10 | Outpatient (CLI) | payer OTHER, MEDICARE ==
[~2020-02-10] MED LIST changes: +ALBUTEROL2.5 MG/0.5 INH; +LUMIFY2.5 ML OPHTHALMIC; +NORVASC5 MG PO; +PEPCID AC10 MG PO; +VITAMINC500 PO; +ZINC SULFATE 2220 MG PO
== END ==
LOC: ULTRA 12:38
PROVIDERS: ATTEND Family Medicine
DX: L03.116 Cellulitis of left lower limb (principal)

== ENCOUNTER → 2020-06-23 | Outpatient (CLI) | payer OTHER, MEDICARE | LOC: SJCVCIMAG 08:00 | PROVIDERS: ATTEND Internal Medicine | DX: I35.8 Other nonrheumatic aortic valve disorders (principal); J44.9 Chronic obstructive pulmonary disease, unspecified; N28.9 Disorder of kidney and ureter, unspecified; Z86.16 Personal history of COVID-19 ==

== ENCOUNTER 2021-01-13 10:34 | Emergency (ER) | payer OTHER, MEDICARE ==
[~2021-01-13] VITALS: Ht 165.1 cm; Wt 77.1 kg
[2021-01-13] MEDS ORDERED: VALACYCLOVIR1000 MG PO (12:32)
[2021-01-13] MEDS ORDERED: ZPAK PO (12:32)
[2021-01-13 12:45] VITALS: BP 177/78
--- NOTE | 2021-01-14 10:02 | EKG ---
[address] [place] [address] ELECTROCARDIOGRAM REPORT Name: JOSELYN RASMUSSEN Room #: [facility]#: [id number] Admission: 01/13/21 Attend Phys: Discharge: 01/13/21 Date of : 34 Report #: [id number] [facility] ED Test Date: 2021-01-13 Test Time: 10:42:30 Pat Name: JOSELYN RASMUSSEN Department: Room: Gender: F Pillowcase Folder: SAADIA : 1930 Requested By: Lana Dye Order Number: [id number] MD: Jake Tirado Measurements Intervals [place] Rate: 76 P: -60 IA: 211 QRS: -54 QRSD: 122 T: 11 QT: 403 QTc: 454 Interpretive Statements Sinus rhythm RBBB and LAFB Compared to ECG 11/18/2019 12:34:47 Ectopic atrial rhythm now present Sinus rhythm no longer present Electronically Signed On 01-14-2021 10:01:51 [employer] by Jake Tirado [email or web address] <ELECTRONICALLY SIGNED> By: Jake Tirado MD 01/14/21 1001 1042 1042 Jake Tirado MD /ERROL
== END 2021-01-13 13:05 | disposition home or self-care (01) ==
LOC: ER 10:34
DX: B02.9 Zoster without complications (principal); Z20.822 Contact with and (suspected) exposure to COVID-19; J06.9 Acute upper respiratory infection, unspecified; F41.9 Anxiety disorder, unspecified; Z86.16 Personal history of COVID-19; Z79.51 Long term (current) use of inhaled steroids; Z79.891 Long term (current) use of opiate analgesic; Z79.899 Other long term (current) drug therapy; Z88.6 Allergy status to analgesic agent; Z88.0 Allergy status to penicillin

== ENCOUNTER → 2021-01-17 | Outpatient (CLI) | payer OTHER, MEDICARE ==
[~2021-01-17] MED LIST changes: +VALACYCLOVIR1000 MG PO; +ZPAK PO
== END ==
LOC: RAD 14:14
PROVIDERS: ATTEND Nurse Practitioner
DX: J44.9 Chronic obstructive pulmonary disease, unspecified (principal); J98.11 Atelectasis